=== PATIENT | female | born 1940 | race African-American/Black ===

== ENCOUNTER 2022-03-20 10:51 | Outpatient (CLI) | payer MEDICARE, SELFPAY ==
--- NOTE | ~2022-03-20 | MR_ITS ---
MRI of the left knee Clinical history: Pain Technique: Coronal proton density and proton density fat sat images, sagittal proton-density and T2 f at-sat images, and axial proton-density fat-saturated images were acquired. Findings: Anterior and posterior cruciate ligaments are intact. Medial collateral ligament and the la teral collateral ligament complex are intact. Popliteus tendon is intact. No lateral meniscal tear identified. There is a vertical tear at the posterior root of the medial men iscus. There is additional complex, predominantly horizontal tearing of the posterior horn and body o f the medial meniscus. 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 Articular cartilage in the lateral compartment and along the femoral trochlea is well preserved. Focal high-grade chondral fissure noted the patellar apex with focal subchondral marrow edema. There is more extensive amorphous marrow yani a in the proximal tibia, especially the medial tibial plateau region. There is a probable very subtle linear subchondral insufficiency fracture of the medial tibial plateau. Extensor mechanism is intact. Small joint effusion present. No Cerda's cyst. Impression: Subtle linear subchondral insufficiency fracture of the medial tibial plateau region with extensive s urrounding marrow edema. Medial meniscal tearing, including vertical tear of the posterior root as well as complex, probably h orizontal tearing of the posterior horn and body. Chondromalacia changes, as detailed above. Small joint effusion. Reviewed, dictated and finalized at location [] [employer] Impression: Subtle linear subchondral insufficiency fracture of the medial tibial plateau r egion with extensive surrounding marrow edema. Medial meniscal tearing, including vertical tear of the posterior root as well as complex, probably horizontal tearing of the posterior horn and body. Chondromalacia changes, as detailed above. Small joint effusion.
== END 2022-03-20 10:52 | disposition home or self-care (01) ==
PROVIDERS: Visit Provider Orthopaedic Surgery
DX: M25.462 Effusion, left knee (principal); S83.242A Other tear of medial meniscus, current injury, left knee, initial encounter; X58.XXXA Exposure to other specified factors, initial encounter
CPT/HCPCS: 73721